=== PATIENT | female | born 1995 | race Caucasian/White ===

== ENCOUNTER 2020-10-25 16:49 | Emergency (ER) | payer OTHER ==
[~2020-10-25] VITALS: Ht 157.5 cm; Wt 59.9 kg
[2020-10-25 16:59] VITALS: BP 107/62
[2020-10-25] MEDS ORDERED: HYDR-637 PO (18:54)
--- NOTE | 2020-10-25 19:10 | NUR ---
Patient discharged with v/s stable. Written and verbal after care instructions given and explained. Patient alert, oriented and verbalized understanding of instructions. Ambulatory with steady gait. All questions addressed prior to discharge. ID band removed. Patient advised to follow up with PMD. Rx of HYDROXYZINE HCL given. Patient educated on indication of medication including possible reaction and side effects. Opportunity to ask questions provided and answered.
== END 2020-10-25 19:08 | disposition home or self-care (01) ==
LOC: MED 16:49
DX: F41.9 Anxiety disorder, unspecified (principal); Z79.899 Other long term (current) drug therapy
CPT/HCPCS: 99283

== ENCOUNTER 2023-03-17 23:51 | Emergency (ER) | payer MEDICAID, OTHER ==
[~2023-03-17] VITALS: Ht 157.5 cm; Wt 61.2 kg
[~2023-03-17 23:51] MED LIST: HYDR-637 PO
[2023-03-17 23:57] VITALS: BP 98/71; PULSE 110; RESP 16; TEMP 98.9; O2SAT 99
[2023-03-18] MEDS ORDERED: NACL 0.9% 1,000 ML IV ONE (00:15)
[2023-03-18] MEDS ORDERED: DEXAMETHASONE 10 MG/ML VIAL IVP ONE (00:15)
[2023-03-18] MEDS ORDERED: KETOROLAC 30 MG/ML VIAL IVP ONE (00:15)
[2023-03-18 00:56] LABS: BASOPHILS # (AUTO) 0.1 K/uL (0.00-0.22); BASOPHILS % (AUTO) 0.6 % (0.0-2.0); EOSINOPHILS # (AUTO) 0.1 K/uL (0-0.4); EOSINOPHILS % (AUTO) 0.4 % (0.0-4.0); HEMATOCRIT 40.9 % (36-48); HEMOGLOBIN 14.1 g/dL (12.0-16.0); LYMPHOCYTES # (AUTO) 1.4 K/uL (2.5-16.5); LYMPHOCYTES % (AUTO) 10.2 % (20.5-51.1); MEAN CORPUSCULAR HEMOGLOBIN 31 pg (27-31); MEAN CORPUSCULAR HGB CONC 34 g/dL (33-37); MEAN CORPUSCULAR VOLUME 89.1 fL (80-94); MONOCYTES # (AUTO) 1.5 K/uL (0.8-1.0); MONOCYTES % (AUTO) 10.9 % (1.7-9.3); NEUTROPHILS # (AUTO) 10.4 K/uL (1.8-7.7); NEUTROPHILS % (AUTO) 77.9 % (42.2-75.2); PLATELET COUNT (AUTO) 252 K/uL (140-450); RED CELL DISTRIBUTION WIDTH 13.3 % (11.6-13.7); WHITE BLOOD COUNT (AUTO) 13.4 K/uL (4.8-10.8)
[2023-03-18 00:58] LABS: ANION GAP 12.3 (8-16); CALCIUM 8.6 mg/dL (8.5-10.1); CARBON DIOXIDE 26.7 mmol/L (21-32); CREATININE 0.8 mg/dL (0.6-1.3)
[2023-03-18] MEDS ORDERED: IBUP-1842 PO (01:16)
[2023-03-18 01:54] VITALS: BP 102/74; PULSE 98; RESP 16; TEMP 98.9; O2SAT 99
== END 2023-03-18 01:54 | disposition home or self-care (01) ==
LOC: MED 23:51
DX: R50.9 Fever, unspecified (principal); R51.9 Headache, unspecified; R05.9 Cough, unspecified; R09.81 Nasal congestion; M79.18 Myalgia, other site; Z79.899 Other long term (current) drug therapy; Z79.1 Long term (current) use of non-steroidal anti-inflammatories (NSAID)
CPT/HCPCS: 36415; 80048; 85025; 96361; 96374; 96375; 99284; J1100; J1885; J7030

== ENCOUNTER 2023-03-21 09:08 | Emergency (ER) | payer MEDICAID ==
[~2023-03-21] VITALS: Ht 157.5 cm; Wt 61.2 kg
[~2023-03-21 09:08] MED LIST changes: +IBUP-1842 PO
[2023-03-21 09:34] VITALS: BP_SYST 83; BP_SYST 90; BP_DIAS 57; BP_DIAS 61; PULSE 103; RESP 16; TEMP 97.3; O2SAT 99
[2023-03-21] MEDS ORDERED: TRAM-748 PO (10:32)
[2023-03-21] MEDS ORDERED: traMADol 50 MG TAB PO ONE (10:35)
[2023-03-21 12:08] LABS: FLU A ANTIGEN negative (NEGATIVE); FLU B ANTIGEN NEGATIVE (NEGATIVE)
== END 2023-03-21 10:54 | disposition home or self-care (01) ==
LOC: MED 09:08
DX: B34.9 Viral infection, unspecified (principal); Z20.822 Contact with and (suspected) exposure to COVID-19; Z79.899 Other long term (current) drug therapy
CPT/HCPCS: 99283

== ENCOUNTER 2023-07-07 21:40 | Emergency (ER) | payer MEDICAID ==
[~2023-07-07] VITALS: Ht 157.5 cm; Wt 61.2 kg
[~2023-07-07 21:40] MED LIST changes: +TRAM-748 PO
[2023-07-07 21:50] VITALS: BP 121/72; PULSE 89; RESP 17; TEMP 98.1; O2SAT 100
[2023-07-08] MEDS ORDERED: BETA0.0521 TP (00:44)
[2023-07-08 00:50] VITALS: BP 121/72; PULSE 89; RESP 17; TEMP 98.1; O2SAT 100
== END 2023-07-08 00:50 | disposition home or self-care (01) ==
LOC: MED 21:40
DX: L40.9 Psoriasis, unspecified (principal); Z79.1 Long term (current) use of non-steroidal anti-inflammatories (NSAID); Z79.52 Long term (current) use of systemic steroids; Z79.899 Other long term (current) drug therapy
CPT/HCPCS: 99283

== ENCOUNTER 2023-09-30 00:12 | Emergency (ER) | payer MEDICAID, OTHER ==
[~2023-09-30] VITALS: Ht 157.5 cm; Wt 63.5 kg
[~2023-09-30 00:12] MED LIST changes: +BETA0.0521 TP
[2023-09-30 00:33] VITALS: BP 102/44; PULSE 77; RESP 16; TEMP 96.7; O2SAT 98
== END 2023-09-30 01:40 | disposition left against medical advice (07) ==
LOC: MED 00:12
DX: M25.571 Pain in right ankle and joints of right foot (principal); Z53.21 Procedure and treatment not carried out due to patient leaving prior to being seen by health care provider
CPT/HCPCS: 73610; Q0092